=== PATIENT | female | born 1980 | race Caucasian/White ===

== ENCOUNTER 2023-08-27 10:44 | Day surgery (SDC) | payer OTHER ==
[2023-08-20 16:30] LABS: BASOPHILS % (AUTO) 0.3 % (0-1); EOSINOPHILS # (AUTO) 0.6 X10'3 (0-0.9); EOSINOPHILS % (AUTO) 8.4 % (0-6); HEMATOCRIT 35.5 % (35.0-45.0); HEMOGLOBIN 12.1 g/dl (12.0-16.0); LYMPHOCYTES # (AUTO) 2.7 X10'3 (1.1-4.8); LYMPHOCYTES % (AUTO) 39.5 % (21-51); MEAN CORPUSCULAR HEMOGLOBIN 30.8 PG (27.0-31.0); MEAN CORPUSCULAR HGB CONC 34.2 g/dL (33.0-36.5); MEAN CORPUSCULAR VOLUME 90.1 FL (78-98); MONOCYTES # (AUTO) 0.5 X10'3 (0-0.9); MONOCYTES % (AUTO) 6.5 % (2-12); NEUTROPHILS # (AUTO) 3.1 X10'3 (1.8-7.7); NEUTROPHILS % (AUTO) 45.3 % (42-75); PLATELET COUNT 302 X10'3 (140-440); RED BLOOD COUNT 3.93 X10'6 (4.20-5.60); RED CELL DISTRIBUTION WIDTH 13.6 % (11.5-14.5); WHITE BLOOD COUNT 6.9 X10'3 (4.5-11.0)
[2023-08-20 16:35] LABS: HCG SERUM QL NEGATIVE
[2023-08-20 16:41] LABS: ALANINE AMINOTRANSFERASE 40 U/L (12-78); ALBUMIN 3.4 G/DL (3.4-5.0); ALBUMIN/GLOBULIN RATIO 0.9 (1.1-1.5); ALKALINE PHOSPHATASE 96 IU/L (46-116); ANION GAP 9 (8-16); ASPARTATE AMINO TRANSFERASE 29 U/L (10-37); BILIRUBIN,TOTAL 0.3 MG/DL (0.1-1.0); BLOOD UREA NITROGEN 12 MG/DL (7-18); BUN/CREATININE RATIO 16.4 (10.0-20.0); CALCIUM 9.2 MG/DL (8.5-10.1); CHLORIDE 104 MMOL/L (99-107); CREATININE 0.73 MG/DL (0.40-0.90); GLUCOSE 118 MG/DL (70-104); POTASSIUM 3.7 MMOL/L (3.5-5.1); SODIUM 138 MMOL/L (135-145); TOTAL CARBON DIOXIDE 25.5 MMOL/L (24-32); TOTAL PROTEIN 7.1 G/DL (6.4-8.2); eGFR 88 ML/MIN
[~2023-08-27] VITALS: Ht 167.6 cm; Wt 112.9 kg
[2023-08-27] VITALS (10 sets, daily range): BP systolic 104–146; BP diastolic 68–95; PULSE 69–102; RESP 16–22; TEMP 97.9; O2SAT 93–97
[~2023-08-27 10:44] MED LIST: ACETAMINOPHEN; ASPI-1264 PO; ASPI1TAB PO; ATOR20TA66 PO; CITA40TA17 PO; HYDR-3686 PO; TRAZ-251 PO; [UNRECOGNIZED DRUG - CODE] PO; cefazolin 2gm/D5W 100mL 100 ML IV ONE; famotidine 20mg tablet PO ONE; ringers solution, lacted 1,000 ML IV SCH
[2023-08-27] MEDS ORDERED: BUPIVAcaine/PF 2.5mg/ml (0.25%) 10ml vial ONE (11:25)
[2023-08-27] MEDS ORDERED: sevoflurane 250ml liquid IH ONE (11:36)
[2023-08-27] MEDS ORDERED: fentaNYL/PF 50MCG/1 ML 2ML syringe ONE (11:40)
[2023-08-27] MEDS ORDERED: midazolam 1 mg/ML 2ml injection ONE (11:41)
[2023-08-27] MEDS ORDERED: propofol inj 20 ML IV ONE (11:42)
[2023-08-27] MEDS ORDERED: rocuronium 10mg/ml inj IV ONE (11:43)
[2023-08-27] MEDS ORDERED: LIDOcaine 1% (10mg/ml)w/preservative inj. 20ml MDV ONE (11:48)
[2023-08-27] MEDS ORDERED: BUPIVACAINE/MELOXICAM 14 ML VIAL IL ONE (11:48)
[2023-08-27] MEDS ORDERED: dexamethasone sod phosphate 4mg/ml inj. ONE (11:51)
[2023-08-27] MEDS ORDERED: BUPIVAcaine 2.5mg/ml inj 50ml vial (contains preservative) ONE (11:54)
[2023-08-27] MEDS ORDERED: BUPIVACAINE liposomal/PF 13.3 MG/ML vial IM ONE ×2 (11:54→11:56)
[2023-08-27] MEDS ORDERED: morphine 4 MG/ML inj SYRINge IV PRN (12:25)
[2023-08-27] MEDS ORDERED: ondansetron/PF 4mg/2ml inj IV PRN (12:25)
[2023-08-27] MEDS ORDERED: proCHLORperazine 10 MG/2 ml inj IV PRN (12:25)
[2023-08-27] MEDS ORDERED: ringers solution, lacted 1,000 ML IV SCH (12:25)
[2023-08-27] MEDS ORDERED: meperidine/PF 25mg/ml syringe IV PRN ×3 (12:25)
[2023-08-27] MEDS ORDERED: morphine 2 MG/ML inj. syringe IV PRN (12:25)
[2023-08-27] MEDS ORDERED: acetaminophen 1,000mg/100ml IV 100 ML IV ONE (12:28)
[2023-08-27] MEDS ORDERED: ondansetron/PF 4mg/2ml inj ONE (12:29)
[2023-08-27] MEDS ORDERED: neostigmine methylsulfate 1 MG/ML 10ml vial ONE (12:36)
[2023-08-27] MEDS ORDERED: glycopyrrolate 0.2mg/ml inj ONE (12:36)
--- NOTE | 2023-08-27 12:52 | NUR ---
Received from OR via brenda , accompanied by Anesthesiologist Tobin and report given by Anesthesiolgist Odom RN. Pt is sleepy and needing arousal to maintain 02 saturation above 90%. SM 10l increased oxygen to 12L. Sating 96% now. Pt is able to respond and following deep breathing commands. Denies pain and discomfort. Rcving Tylenol IVPB. 4 lap sites covered with Band Aids CDI. Abdominal binder in place. VSS. Will continue to monitor patient.
[2023-08-27] MEDS ORDERED: oxyCODONE/APAP 5-325mg tablet PO PRN (13:05)
--- NOTE | 2023-08-27 14:32 | NUR ---
Pt given verbal discharge instructions and handout, pt verbalized understanding. All belongings on patient. 4 lap site dressings, CDI. Pt continuing to wear abdominal binder. Transported patient via wheelchair to private vehicle without incident. Addendum: 08/27/23 at 1503 by Harleen Oconnor RN Amended: Links added.
== END 2023-08-27 14:32 | disposition home or self-care (01) ==
LOC: PAS 10:44
PROVIDERS: ATTEND Surgery
DX: K43.2 Incisional hernia without obstruction or gangrene (principal); J45.909 Unspecified asthma, uncomplicated; G43.909 Migraine, unspecified, not intractable, without status migrainosus; F41.9 Anxiety disorder, unspecified; F32.A Depression, unspecified; E66.9 Obesity, unspecified; Z68.41 Body mass index [BMI] 40.0-44.9, adult; Z88.2 Allergy status to sulfonamides; Z88.5 Allergy status to narcotic agent; Z79.82 Long term (current) use of aspirin; Z79.899 Other long term (current) drug therapy; Z98.890 Other specified postprocedural states
CPT/HCPCS: 36415; 49615; 64488; 80053; 82948; 84703; 85025; C1781; C9290; J0131; J0690; J1100; J2250; J2405; J2704; J2710; J3010; J3490; J7030; J7120; S2900; Z7506; Z7508; Z7512; A4215; A4618

== ENCOUNTER 2024-03-24 11:50 | Outpatient (CLI) | payer MEDICAID ==
[~2024-03-24 11:50] MED LIST changes: -cefazolin 2gm/D5W 100mL 100 ML IV ONE; -famotidine 20mg tablet PO ONE; -ringers solution, lacted 1,000 ML IV SCH
== END 2024-03-24 23:59 | disposition home or self-care (01) ==
LOC: RAD 11:50
PROVIDERS: ATTEND Family Medicine
DX: R06.2 Wheezing (principal)
CPT/HCPCS: 71046

== ENCOUNTER 2025-06-23 09:29 | Emergency (ER) | payer MEDICAID ==
[~2025-06-23] VITALS: Ht 167.6 cm; Wt 117.8 kg
[2025-06-23 09:34] VITALS: BP 146/96; PULSE 95; RESP 16; O2SAT 97
--- NOTE | 2025-06-23 10:05 | RADIOLOGY REPORT ---
EXAM: DI SHOULDER, COMPLETE (MIN 2 VWS) CLINICAL INDICATION: Shoulder Pain TECHNIQUE: DI SHOULDER, COMPLETE (MIN 2 VWS) Comparison: None FINDINGS/IMPRESSION: There is no evidence of acute fracture or dislocation. The visualized joint space is well maintained. The alignment is anatomical. There is no radiopaque foreign body.
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
[2025-06-23 10:27] VITALS: TEMP 98.1
== END 2025-06-23 10:28 | disposition home or self-care (01) ==
LOC: ER 09:29
DX: M25.512 Pain in left shoulder (principal); Z88.2 Allergy status to sulfonamides; Z88.5 Allergy status to narcotic agent; W18.30XA Fall on same level, unspecified, initial encounter; Y93.89 Activity, other specified; Y92.89 Other specified places as the place of occurrence of the external cause; Y99.8 Other external cause status
CPT/HCPCS: 73030; 99283